=== PATIENT | female | born 1990 | race American Indian/Alaskan Native ===

== ENCOUNTER 2019-01-26 20:17 | Emergency (ER) | payer MEDICAID ==
--- NOTE | 2019-01-26 20:48 | Event Note ---
ED Screening Note Date of service: 01/26/19 Time: 20:43 ED Screening Note: 28 y/o female c/o vagbleeding and pelvic cramping. Report 10weeks preg. LMP November 15. [facility]. Started vitamins 2 days ago. This initial assessment/diagnostic orders/clinical plan/treatment(s) is/are subject to change based on patients health status, clinical progression and re- assessment by fellow clinical providers in the ED. Further treatment and workup at subsequent clinical providers discretion. Patient/guardian urged not to elope from the ED as their condition may be serious if not clinically assessed and managed. Initial orders include:
[2019-01-26 21:16] LABS: Basophils % (Auto) 0.7 % (0.0-1.8); Eosinophils % (Auto) 0.1 % (0.0-4.3); Hematocrit 35.1 % (30.3-42.9); Hemoglobin 11.6 gm/dl (10.1-14.3); Lymphocytes # (Auto) 1.7 K/mm3 (1.2-5.4); Lymphocytes % (Auto) 25.8 % (13.4-35.0); Mean Corpuscular HGB Conc 33 % (30-34); Mean Corpuscular Volume 85 fl (79-97); Monocytes # (Auto) 0.7 K/mm3 (0.0-0.8); Monocytes % (Auto) 10.2 % (0.0-7.3); Platelet Count 237 K/mm3 (140-440); Red Blood Count 4.15 M/mm3 (3.65-5.03); Red Cell Distribution Width 13.4 % (13.2-15.2)
[2019-01-26 21:31] LABS: BUN/Creatinine Ratio 17; Blood Urea Nitrogen 10 mg/dL (7-17); Calcium 9.3 mg/dL (8.4-10.2); Hemolysis Index 5
--- NOTE | 2019-01-26 22:48 | Ultrasound Report ---
OB ultrasound FINDINGS: There is a viable intrauterine with crown-rump length measurements corresponding to an MA of 6 weeks 1 day for an EDC of 09/20/2019. This correlates with the clinical dates. hea rt rate is 116 bpm. No subchorionic hemorrhage or free fluid seen. Right ovary measures 2 x 1.4 x 1.3 cm and appears normal. Left ovary measures 2.5 x 2.4 x 1.7 cm and contains a 2 x 1.4 x 1.7 cm hypoec hoic area which is nonspecific. No free fluid seen. IMPRESSION: Viable IUP as described. Signer Name: Aroldo Schafer MD Signed: 01/26/2019 10:44 PM Workstation Name: [id number]
[2019-01-26 22:52] LABS: Bilirubin,Urine NEG (Negative); Blood,Urine NEG (Negative); Color,Urine Yellow (Yellow); Mucus,Urine 3+ /HPF; Protein,Urine <15 mg/dL mg/dL (Negative)
[2019-01-26 23:42] VITALS: BP 120/61
[2019-01-27] MEDS ORDERED: TYLENOL PO ONE (01:20)
[2019-01-27] MEDS ORDERED: ZOFRAN ODT PO ONE (01:20)
--- NOTE | 2019-01-27 01:29 | Emergency Department Report ---
ED Abdominal Pain HPI - General Chief Complaint: Abdominal Pain Stated Complaint: ABD PAIN/10 WEEKS PREG/CRAMPING AND BLEEDING Time Seen by Provider: 01/26/19 20:43 Source: patient Mode of arrival: Ambulatory Limitations: No Limitations - History of Present Illness Initial Comments: 28 y/o female c/o vagbleeding and pelvic cramping. Report 10weeks preg. LMP November 15. [facility]. Started vitamins 2 days ago. MD Complaint: abdominal pain Onset/Timin -: days(s) Location: suprapubic Radiation: none Migration to: no migration Severity: moderate Severity scale (0 -10): 4 Quality: cramping Consistency: intermittent Improves With: nothing Worsens With: nothing Associated Symptoms: nausea. denies: vomiting, diarrhea, fever, chills, constipation, dysuria, melena - Related Data LMP Date: 12/16/18 Previous Rx's Medication Instructions Recorded Last Taken Type Acetaminophen [Acetaminophen TAB] 650 mg PO Q6HR PRN #30 tablet 01/27/19 Unknown Rx Ondansetron [Zofran Odt] 4 mg PO Q8HR PRN #21 tab.rapdis 01/27/19 Unknown Rx Allergies Allergy/AdvReac Type Severity Reaction Status Date / Time No Known Allergies Allergy Verified 01/26/19 20:21 ED Review of Systems ROS: Stated complaint: ABD PAIN/10 WEEKS PREG/CRAMPING AND BLEEDING Other details as noted in HPI Constitutional: denies: chills, fever Eyes: denies: eye pain, eye discharge, vision change ENT: denies: ear pain, throat pain Respiratory: denies: cough, shortness of breath, wheezing Cardiovascular: denies: chest pain, palpitations Endocrine: no symptoms reported Gastrointestinal: abdominal pain, nausea. denies: vomiting, melena Genitourinary: as per HPI. denies: urgency, dysuria, frequency, hematuria, discharge Musculoskeletal: denies: back pain, joint swelling, arthralgia Skin: denies: rash, lesions Neurological: denies: headache, weakness, paresthesias Psychiatric: denies: anxiety, depression Hematological/Lymphatic: denies: easy bleeding, easy bruising ED Past Medical Hx - Social History Smoking Status: Never Smoker Substance Use Type: None - Medications Home Medications: Home Medications Medication Instructions Recorded Confirmed Last Taken Type Acetaminophen [Acetaminophen TAB] 650 mg PO Q6HR PRN #30 tablet 01/27/19 Unknown Rx Ondansetron [Zofran Odt] 4 mg PO Q8HR PRN #21 tab.rapdis 01/27/19 Unknown Rx ED Physical Exam - General Limitations: No Limitations General appearance: alert, in no apparent distress - Head Head exam: Present: atraumatic, normocephalic - Eye Eye exam: Present: normal appearance, PERRL, EOMI Pupils: Present: normal accommodation - ENT ENT exam: Present: normal orophraynx, mucous membranes moist, TM's normal bi laterally, normal external ear exam - Neck Neck exam: Present: normal inspection, full ROM. Absent: tenderness, meningismus, lymphadenopathy, thyromegaly - Respiratory Respiratory exam: Present: normal lung sounds bilaterally, chest wall tenderness. Absent: respiratory distress, wheezes, stridor - Cardiovascular Cardiovascular Exam: Present: regular rate, normal rhythm, normal heart sounds. Absent: systolic murmur, diastolic murmur, rubs, gallop - GI/Abdominal GI/Abdominal exam: Present: soft, tenderness (superpubic ), normal bowel sounds. Absent: distended, guarding, rebound, rigid, bruit, hernia - Rectal Rectal exam: Present: deferred - External exam: Present: other (exam deferred by patient ) - Extremities Exam Extremities exam: Present: normal inspection, full ROM, normal capillary refill. Absent: tenderness - Back Exam Back exam: Present: normal inspection, full ROM. Absent: tenderness, CVA tenderness (R), CVA tenderness (L), muscle spasm, paraspinal tenderness, rash noted - Neurological Exam Neurological exam: Present: alert, oriented X3, CN II-XII intact, normal gait, motor sensory deficit, reflexes normal - Psychiatric Psychiatric exam: Present: normal affect, normal mood - Skin Skin exam: Present: warm, dry, intact, normal color. Absent: rash ED Course Vital Signs 01/26/19 23:41 Temperature 98.3 F Pulse Rate 59 L Respiratory 20 Rate Blood Pressure 120/61 [Right] O2 Sat by Pulse 100 Oximetry ED Medical Decision Making - Lab Data Result diagrams: 01/26/19 20:55 01/26/19 20:55 Lab Results 08/06/19 08/06/19 08/06/19 Range/Units 20:55 20:55 20:55 WBC 6.8 (4.5-11.0) K/mm3 RBC 4.15 (3.65-5.03) M/mm3 Hgb 11.6 (10.1-14.3) gm/dl Hct 35.1 (30.3-42.9) % MCV 85 (79-97) fl MCH 28 (28-32) pg MCHC 33 (30-34) % RDW 13.4 (13.2-15.2) % Plt Count 237 (140-440) K/mm3 Lymph % (Auto) 25.8 (13.4-35.0) % [place] % (Auto) 10.2 H (0.0-7.3) % Eos % (Auto) 0.1 (0.0-4.3) % Baso % (Auto) 0.7 (0.0-1.8) % Lymph # 1.7 (1.2-5.4) K/mm3 [place] # 0.7 (0.0-0.8) K/mm3 Eos # 0.0 (0.0-0.4) K/mm3 Baso # 0.0 (0.0-0.1) K/mm3 Seg Neutrophils % 63.2 (40.0-70.0) % Seg Neutrophils # 4.3 (1.8-7.7) K/mm3 Sodium 137 (137-145) mmol/L Potassium 3.4 L (3.6-5.0) mmol/L Chloride 104.1 (98-107) mmol/L Carbon Dioxide 23 (22-30) mmol/L Anion Gap 13 mmol/L BUN 10 (7-17) mg/dL Creatinine 0.6 L (0.7-1.2) mg/dL Estimated GFR > 60 ml/min BUN/Creatinine Ratio 17 % Glucose 95 (65-100) mg/dL Calcium 9.3 (8.4-10.2) mg/dL HCG, Quant 52470 H (0-4) mIU/mL Urine Color (Yellow) Urine Turbidity (Clear) Urine pH (5.0-7.0) Ur Specific [place] (1.003-1.030) Urine Protein (Negative) mg/dL Urine Glucose (UA) (Negative) mg/dL Urine Ketones (Negative) mg/dL Urine Blood (Negative) Urine Nitrite (Negative) Urine Bilirubin (Negative) Urine Urobilinogen (<2.0) mg/dL Ur Leukocyte Esterase (Negative) Urine WBC (Auto) (0.0-6.0) /HPF Urine RBC (Auto) (0.0-6.0) /HPF U Epithel Cells (Auto) (0-13.0) /HPF Urine Mucus /HPF Blood Type Ord Rhogam Gestat Weeks WEEKS 01/26/19 01/26/19 Range/Units 20:55 21:55 WBC (4.5-11.0) K/mm3 RBC (3.65-5.03) M/mm3 Hgb (10.1-14.3) gm/dl Hct (30.3-42.9) % MCV (79-97) fl MCH (28-32) pg MCHC (30-34) % RDW (13.2-15.2) % Plt Count (140-440) K/mm3 Lymph % (Auto) (13.4-35.0) % [place] % (Auto) (0.0-7.3) % Eos % (Auto) (0.0-4.3) % Baso % (Auto) (0.0-1.8) % Lymph # (1.2-5.4) K/mm3 [place] # (0.0-0.8) K/mm3 Eos # (0.0-0.4) K/mm3 Baso # (0.0-0.1) K/mm3 Seg Neutrophils % (40.0-70.0) % Seg Neutrophils # (1.8-7.7) K/mm3 Sodium (137-145) mmol/L Potassium (3.6-5.0) mmol/L Chloride (98-107) mmol/L Carbon Dioxide (22-30) mmol/L Anion Gap mmol/L BUN (7-17) mg/dL Creatinine (0.7-1.2) mg/dL Estimated GFR ml/min BUN/Creatinine Ratio % Glucose (65-100) mg/dL Calcium (8.4-10.2) mg/dL HCG, Quant (0-4) mIU/mL Urine Color Yellow (Yellow) Urine Turbidity Slightly-cloudy (Clear) Urine pH 6.0 (5.0-7.0) Ur Specific [place] 1.032 H (1.003-1.030) Urine Protein <15 mg/dl (Negative) mg/dL Urine Glucose (UA) Neg (Negative) mg/dL Urine Ketones 20 (Negative) mg/dL Urine Blood Neg (Negative) Urine Nitrite Neg (Negative) Urine Bilirubin Neg (Negative) Urine Urobilinogen 2.0 (<2.0) mg/dL Ur Leukocyte Esterase Neg (Negative) Urine WBC (Auto) 2.0 (0.0-6.0) /HPF Urine RBC (Auto) 5.0 (0.0-6.0) /HPF U Epithel Cells (Auto) 4.0 (0-13.0) /HPF Urine Mucus 3+ /HPF Blood Type A POSITIVE Ord Rhogam Gestat Weeks Rh pos WEEKS - Radiology Data Radiology results: report reviewed, image reviewed Ordering Physician: HAMMAD MAYBERRY Date of Service: 01/26/19 Procedure(s): US OB transvaginal Accession Number(s): [id number] cc: HAMMAD MAYBERRY OB ultrasound FINDINGS: There is a viable intrauterine with crown-rump length measurements corresponding to an MA of 6 weeks 1 day for an EDC of 09/20/2019. This correlates with the clinical dates. heart rate is 116 bpm. No subchorionic hemorrhage or free fluid seen. Right ovary measures 2 x 1.4 x 1.3 cm and appears normal. Left ovary measures 2.5 x 2.4 x 1.7 cm and contains a 2 x 1.4 x 1.7 cm hypoechoic area which is nonspecific. No free fluid seen. IMPRESSION: Viable IUP as described. Signer Name: Aroldo Schafer MD Signed: 01/26/2019 10:44 PM Workstation Name: [id number] Transcribed By: COSTA Dictated By: Aroldo Schafer MD Electronically Authenticated By: Aroldo Schafer MD Signed Date/Time: 01/26/192243 DD/ 40 TD/TT: - Medical Decision Making Single IUP 6 weeks and 1 day, FHR 116 bpm, there no vaginal bleeding no n/v no back pain at this time. Critical care attestation.: If time is entered above; I have spent that time in minutes in the direct care of this critically ill patient, excluding procedure time. ED Disposition Clinical Impression: Abdominal pain during intrauterine , Threatened miscarriage Disposition: - TO HOME OR SELFCARE Is pt being admited?: No Does the pt Need Aspirin: No Condition: Stable Instructions: Abdominal Pain in (ED), Threatened Miscarriage (ED) Prescriptions: Acetaminophen [Acetaminophen TAB] 650 mg PO Q6HR PRN #30 tablet PRN Reason: Pain Ondansetron [Zofran Odt] 4 mg PO Q8HR PRN #21 tab.rapdis PRN Reason: Nausea And Vomiting Referrals: ROBERTH HARRIS MD [Primary Care Provider] - 3-5 Days Forms: Work/School Release Form(ED) Time of Disposition: 01:39
== END 2019-01-27 01:45 | disposition home or self-care (01) ==
LOC: ED 20:17
DX: O20.0 Threatened abortion (principal); Z79.899 Other long term (current) drug therapy; Z3A.01 Less than 8 weeks gestation of pregnancy
CPT/HCPCS: 36415; 76801; 76817; 80048; 81001; 84702; 85025; 86900; 86901; Q0162

== ENCOUNTER 2020-06-07 18:23 | Emergency (ER) | payer MEDICAID ==
[2020-06-07 19:30] VITALS: BP 110/62
[2020-06-07 20:26] LABS: Basophils # (Auto) 0.1 K/mm3 (0.0-0.1); Basophils % (Auto) 0.9 % (0.0-1.8); Eosinophils # (Auto) 0.1 K/mm3 (0.0-0.4); Eosinophils % (Auto) 0.9 % (0.0-4.3); Hematocrit 36.5 % (30.3-42.9); Lymphocytes # (Auto) 1.6 K/mm3 (1.2-5.4); Lymphocytes % (Auto) 27.5 % (13.4-35.0); Mean Corpuscular HGB Conc 33 % (30-34); Mean Corpuscular Volume 85 fl (79-97); Monocytes # (Auto) 0.5 K/mm3 (0.0-0.8); Monocytes % (Auto) 8.8 % (0.0-7.3); Platelet Count 270 K/mm3 (140-440); Red Blood Count 4.29 M/mm3 (3.65-5.03); Red Cell Distribution Width 13.8 % (13.2-15.2)
[2020-06-07 20:46] LABS: Alanine Aminotransferase 14 units/L (7-56); Albumin 4.2 g/dL (3.9-5); Blood Urea Nitrogen 10 mg/dL (7-17); Calcium 9.9 mg/dL (8.4-10.2); Hemolysis Index 8
[2020-06-07 20:47] LABS: BUN/Creatinine Ratio 17
--- NOTE | 2020-06-07 22:53 | Ultrasound Report ---
EXAMINATION: Obstetrical Ultrasound INDICATION: Fall. Abdominal pain in . COMPARISON: None FINDINGS: There is a single, living intrauterine . [place]-rump length = 2.0 cm = 8 weeks, 4 day(s). heart rate is 171 beats per minute. Bilateral adnexal regions are not well visualized secondary to bowel gas. IMPRESSION: 1. Single living intrauterine with details as above. Signer Name: Negra Delarosa MD Signed: 06/07/2020 10:48 PM Workstation Name: [id number]
--- NOTE | 2020-06-07 22:53 | Ultrasound Report ---
EXAMINATION: Obstetrical Ultrasound INDICATION: Fall. Abdominal pain in . COMPARISON: None FINDINGS: There is a single, living intrauterine . [place]-rump length = 2.0 cm = 8 weeks, 4 day(s). heart rate is 171 beats per minute. Bilateral adnexal regions are not well visualized secondary to bowel gas. IMPRESSION: 1. Single living intrauterine with details as above. Signer Name: Negra Delarosa MD Signed: 06/07/2020 10:48 PM Workstation Name: [id number]
--- NOTE | 2020-06-07 23:17 | XRay Report ---
EXAMINATION: Right ankle radiograph, 3 views, 06/07/2020 CLINICAL INFORMATION: Fall. Trauma. COMPARISON: None. FINDINGS: There is no evidence of acute bony fracture or soft tissue swelling of the right ankle. Signer Name: Negra Delarosa MD Signed: 06/07/2020 11:12 PM Workstation Name: [id number]
--- NOTE | 2020-06-08 00:48 | Emergency Department Report ---
ED General Adult HPI - General Chief complaint: Abdominal Pain Stated complaint: 8 WKS /RT ANKLE PAIN/FALL Source: patient Mode of arrival: Ambulatory Limitations: No Limitations - Related Data Previous Rx's Medication Instructions Recorded Last Taken Type Acetaminophen [Acetaminophen TAB] 650 mg PO Q6HR PRN #30 tablet 01/27/19 Unknown Rx Ondansetron [Zofran Odt] 4 mg PO Q8HR PRN #21 tab.rapdis 01/27/19 Unknown Rx Allergies Allergy/AdvReac Type Severity Reaction Status Date / Time No Known Allergies Allergy Verified 01/26/19 20:21 ED Review of Systems ROS: Stated complaint: 8 WKS /RT ANKLE PAIN/FALL Other details as noted in HPI ED Past Medical Hx - Past Medical History Previous Medical History?: No - Surgical History Past Surgical History?: No - Social History Smoking Status: Never Smoker - Medications Home Medications: Home Medications Medication Instructions Recorded Confirmed Last Taken Type Acetaminophen [Acetaminophen TAB] 650 mg PO Q6HR PRN #30 tablet 01/27/19 Unknown Rx Ondansetron [Zofran Odt] 4 mg PO Q8HR PRN #21 tab.rapdis 01/27/19 Unknown Rx ED Physical Exam - General Limitations: No Limitations ED Course Vital Signs 06/07/20 19:24 Temperature 98.6 F Pulse Rate 83 Respiratory 18 Rate Blood Pressure 110/62 O2 Sat by Pulse 99 Oximetry ED Medical Decision Making - Lab Data Result diagrams: 06/07/20 20:12 06/07/20 20:12 - Radiology Data Radiology results: report reviewed EXAMINATION: Obstetrical Ultrasound INDICATION: Fall. Abdominal pain in . COMPARISON: None FINDINGS: There is a single, living intrauterine . [place]-rump length = 2.0 cm = 8 weeks, 4 day(s). heart rate is 171 beats per minute. Bilateral adnexal regions are not well visualized secondary to bowel gas. IMPRESSION: 1. Single living intrauterine with details as above. Procedure(s): XR ankle 3+V RT Accession Number(s): [id number] cc: ABHISHEK Tran Time In Minutes: EXAMINATION: Right ankle radiograph, 3 views, 06/07/2020 CLINICAL INFORMATION: Fall. Trauma. COMPARISON: None. FINDINGS: There is no evidence of acute bony fracture or soft tissue swelling of the right ankle. Critical care attestation.: If time is entered above; I have spent that time in minutes in the direct care of this critically ill patient, excluding procedure time. ED Disposition Clinical Impression: 8 weeks gestation of Right ankle sprain Qualifiers: Encounter type: initial encounter Involved ligament of ankle: other ligament Qualified Code(s): S93.491A - Sprain of other ligament of right ankle, initial encounter Is pt being admited?: No Condition: Stable Instructions: Abdominal Pain (ED), Ankle Sprain, Abdominal Pain During , [id number] Additional Instructions: Please use Tylenol as needed for pain Referrals: [facility] [Provider Group] - 3-5 Days PRIMARY CARE, [Primary Care Provider] - 3-5 Days
--- NOTE | 2020-06-08 01:20 | Emergency Department Report ---
ED General Adult HPI - General Chief complaint: Abdominal Pain Stated complaint: 8 WKS /RT ANKLE PAIN/FALL Time Seen by Provider: 06/08/20 00:46 Source: patient Mode of arrival: Ambulatory Limitations: No Limitations - History of Present Illness Initial comments: 29-year-old -[place] female patient presents with complaints of mild abdominal cramping and right ankle pain after a trip and fall injury today. Patient reports she is 8 weeks . She states that when she fell she hit her abdomen on the carpet. She denies any head trauma, loss of consciousness, vaginal bleeding, nausea/vomiting, bruising, chest pain, or shortness of breath. She rates her ankle pain as a 4/10 in severity and states it occurs mainly when placing weight on the ankle. No current abdominal pain per patient. She also denies any urinary symptoms. She states she is currently following with an PILOT BOAT OPERATOR - Related Data Previous Rx's Medication Instructions Recorded Last Taken Type Acetaminophen [Acetaminophen TAB] 650 mg PO Q6HR PRN #30 tablet 01/27/19 Unknown Rx Ondansetron [Zofran Odt] 4 mg PO Q8HR PRN #21 tab.rapdis 01/27/19 Unknown Rx Allergies Allergy/AdvReac Type Severity Reaction Status Date / Time No Known Allergies Allergy Verified 01/26/19 20:21 ED Review of Systems ROS: Stated complaint: 8 WKS /RT ANKLE PAIN/FALL Other details as noted in HPI Constitutional: denies: chills, fever, malaise Respiratory: denies: cough, shortness of breath Cardiovascular: denies: chest pain Gastrointestinal: abdominal pain. denies: nausea, vomiting, diarrhea, constipation Genitourinary: denies: urgency, dysuria, frequency, hematuria, discharge, abnormal menses, dyspareunia Musculoskeletal: arthralgia. denies: joint swelling Skin: denies: change in color ED Past Medical Hx - Past Medical History Previous Medical History?: No - Surgical History Past Surgical History?: No - Social History Smoking Status: Never Smoker - Medications Home Medications: Home Medications Medication Instructions Recorded Confirmed Last Taken Type Acetaminophen [Acetaminophen TAB] 650 mg PO Q6HR PRN #30 tablet 01/27/19 Unknown Rx Ondansetron [Zofran Odt] 4 mg PO Q8HR PRN #21 tab.rapdis 01/27/19 Unknown Rx ED Physical Exam - General Limitations: No Limitations General appearance: alert, in no apparent distress - Head Head exam: Present: atraumatic, normocephalic - Eye Eye exam: Present: normal appearance. Absent: scleral icterus - Neck Neck exam: Present: normal inspection - Respiratory Respiratory exam: Present: normal lung sounds bilaterally. Absent: respiratory distress - Cardiovascular Cardiovascular Exam: Present: regular rate, normal rhythm - GI/Abdominal GI/Abdominal exam: Present: soft, normal bowel sounds. Absent: distended, tenderness, guarding, rebound, rigid - Extremities Exam Extremities exam: Present: other (Mild tenderness to palpation noted to top of ankle and lateral ankle without swelling or bruising noted; normal pedal pulses noted) - Back Exam Back exam: Present: normal inspection - Neurological Exam Neurological exam: Present: alert, oriented X3. Absent: abnormal gait - Psychiatric Psychiatric exam: Present: normal affect, normal mood - Skin Skin exam: Present: warm, dry, intact, normal color. Absent: rash ED Course Vital Signs 06/07/20 19:24 Temperature 98.6 F Pulse Rate 83 Respiratory 18 Rate Blood Pressure 110/62 O2 Sat by Pulse 99 Oximetry ED Medical Decision Making - Lab Data Result diagrams: 06/07/20 20:12 06/07/20 20:12 Lab Results 06/07/20 06/07/20 06/07/20 Range/Units 20:12 20:12 20:12 WBC 5.7 (4.5-11.0) K/mm3 RBC 4.29 (3.65-5.03) M/mm3 Hgb 12.0 (10.1-14.3) gm/dl Hct 36.5 (30.3-42.9) % MCV 85 (79-97) fl MCH 28 (28-32) pg MCHC 33 (30-34) % RDW 13.8 (13.2-15.2) % Plt Count 270 (140-440) K/mm3 Lymph % (Auto) 27.5 (13.4-35.0) % [place] % (Auto) 8.8 H (0.0-7.3) % Eos % (Auto) 0.9 (0.0-4.3) % Baso % (Auto) 0.9 (0.0-1.8) % Lymph # (Auto) 1.6 (1.2-5.4) K/mm3 [place] # (Auto) 0.5 (0.0-0.8) K/mm3 Eos # (Auto) 0.1 (0.0-0.4) K/mm3 Baso # (Auto) 0.1 (0.0-0.1) K/mm3 Seg Neutrophils % 61.9 (40.0-70.0) % Seg Neutrophils # 3.5 (1.8-7.7) K/mm3 Sodium 136 L (137-145) mmol/L Potassium 3.6 (3.6-5.0) mmol/L Chloride 100.6 (98-107) mmol/L Carbon Dioxide 23 (22-30) mmol/L Anion Gap 16 mmol/L BUN 10 (7-17) mg/dL Creatinine 0.6 (0.6-1.2) mg/dL Estimated GFR > 60 ml/min BUN/Creatinine Ratio 17 % Glucose 92 (65-100) mg/dL Calcium 9.9 (8.4-10.2) mg/dL Total Bilirubin 0.20 (0.1-1.2) mg/dL AST 16 (5-40) units/L ALT 14 (7-56) units/L Alkaline Phosphatase 65 (35-129) units/L Total Protein 7.2 (6.3-8.2) g/dL Albumin 4.2 (3.9-5) g/dL Albumin/Globulin Ratio 1.4 % Lipase 23 (13-60) units/L HCG, Quant 03603 H (0-4) mIU/mL - Radiology Data Radiology results: report reviewed Ultrasound Report Signed Patient: TIM MURO MR#: [id number] : 1990 Acct:[id number] Age/Sex: 29 / F ADM Date: 06/07/20 Loc: ED Attending Dr: Ordering Physician: ABHISHEK PARISH Date of Service: 06/07/20 Procedure(s): US OB transvaginal Accession Number(s): [id number] cc: ABHISHEK PARISH EXAMINATION: Obstetrical Ultrasound INDICATION: Fall. Abdominal pain in . COMPARISON: None FINDINGS: There is a single, living intrauterine . [place]-rump length = 2.0 cm = 8 weeks, 4 day(s). heart rate is 171 beats per minute. Bilateral adnexal regions are not well visualized secondary to bowel gas. IMPRESSION: 1. Single living intrauterine with details as above. Ordering Physician: ABHISHEK PARISH Date of Service: 06/07/20 Procedure(s): XR ankle 3+V RT Accession Number(s): [id number] cc: ABHISHEK PARISH Fluoro Time In Minutes: EXAMINATION: Right ankle radiograph, 3 views, 06/07/2020 CLINICAL INFORMATION: Fall. Trauma. COMPARISON: None. FINDINGS: There is no evidence of acute bony fracture or soft tissue swelling of the right ankle. - Medical Decision Making 29-year-old -[place] female patient presents with complaints of mild abdominal cramping and right ankle pain after a trip and fall injury today. Patient reports she is 8 weeks . She states that when she fell she hit her abdomen on the carpet. She denies any head trauma, loss of consciousness, vaginal bleeding, nausea/vomiting, bruising, chest pain, or shortness of breath. She rates her ankle pain as a 4/10 in severity and states it occurs mainly when placing weight on the ankle. No current abdominal pain per patient. She also denies any urinary symptoms. She states she is currently following with an PILOT BOAT OPERATOR X-rays negative for any acute bony abnormalities. Ultrasound shows viable 8- week 3-day IUP without complications. She is well-appearing, her vitals are normal, she is stable for discharge home. Recommend follow-up with PILOT BOAT OPERATOR. Will treat ankle for sprain with rice method and Tylenol. Discussed strict return precautions in detail with patient who verbalizes understanding. Critical care attestation.: If time is entered above; I have spent that time in minutes in the direct care of this critically ill patient, excluding procedure time. ED Disposition Clinical Impression: 8 weeks gestation of Right ankle sprain Qualifiers: Encounter type: initial encounter Involved ligament of ankle: other ligament Qualified Code(s): S93.491A - Sprain of other ligament of right ankle, initial encounter Disposition: TO HOME OR SELFCARE Is pt being admited?: No Condition: Stable Instructions: Abdominal Pain During , [id number], Ankle Sprain, Abdominal Pain (ED) Additional Instructions: Please use Tylenol as needed for pain Referrals: [facility] [Provider Group] - 3-5 Days PRIMARY CARE, [Primary Care Provider] - 3-5 Days Forms: Work/School Release Form(ED)
== END 2020-06-08 00:54 | disposition home or self-care (01) ==
LOC: ED 18:23
DX: O9A.211 Injury, poisoning and certain other consequences of external causes complicating pregnancy, first trimester (principal); S93.491A Sprain of other ligament of right ankle, initial encounter; Z3A.08 8 weeks gestation of pregnancy; Z79.899 Other long term (current) drug therapy; W01.0XXA Fall on same level from slipping, tripping and stumbling without subsequent striking against object, initial encounter; Y93.89 Activity, other specified; Y92.89 Other specified places as the place of occurrence of the external cause; Y99.8 Other external cause status
CPT/HCPCS: 36415; 76801; 76817; 80053; 83690; 84702; 85025